=== PATIENT | female | born 2000 | race African-American/Black ===

== ENCOUNTER 2020-10-30 20:56 | Emergency (ER) | payer MEDICAID ==
[~2020-10-30] VITALS: Ht 162.6 cm; Wt 45.0 kg
[2020-10-30 20:58] VITALS: BP 110/70
[2020-10-30 23:00] LABS: CLARITY URINE CLOUDY (CLEAR); COLOR URINE YELLOW (YELLOW); KETONES URINE 4+ (NEGATIVE); LEUKOCYTE ESTERASE URINE TRACE (NEGATIVE); NITRITE URINE NEGATIVE (NEGATIVE); OCCULT BLOOD URINE NEGATIVE (NEGATIVE); PH URINE 7.5 (4.5-8.0); PROTEIN URINE 1+ (NEGATIVE); SPECIFIC GRAVITY URINE 1.028 (1.005-1.030); UROBILINOGEN URINE 0.2 E.U./dL (0.2-1.0)
== END 2020-10-30 23:59 | disposition left against medical advice (07) ==
LOC: ER 20:56
DX: Z53.21 Procedure and treatment not carried out due to patient leaving prior to being seen by health care provider (principal); R10.30 Lower abdominal pain, unspecified; R11.2 Nausea with vomiting, unspecified
CPT/HCPCS: 81003; 81025

== ENCOUNTER 2024-12-13 12:17 | Emergency (ER) | payer MEDICAID ==
[~2024-12-13] VITALS: Ht 162.6 cm; Wt 61.0 kg
[2024-12-13] MEDS ORDERED: IBUP-2028 MT (13:31)
[2024-12-13] MEDS ORDERED: AMOX1TAB16 MT (13:31)
[2024-12-13] MEDS ORDERED: HYDR-4001 MT (13:31)
[2024-12-13] MEDS: HYDROCODONE/ACETAMINOPHEN 5/325MG TABLET PO ONE (13:39)
[2024-12-13] MEDS: AMOXICILLIN/POTASSIUM CLAVULANATE 875/125MG TAB PO ONE (13:39)
[2024-12-13 13:44] VITALS: BP 136/76; PULSE 97; RESP 14; TEMP 35.8; O2SAT 99
== END 2024-12-13 13:46 | disposition home or self-care (01) ==
LOC: ER 12:17
DX: K02.9 Dental caries, unspecified (principal)
CPT/HCPCS: 99283

== ENCOUNTER 2025-10-01 17:41 | Emergency (ER) | payer MEDICAID ==
[~2025-10-01] VITALS: Ht 162.6 cm; Wt 60.0 kg
[~2025-10-01 17:41] MED LIST: AMOX1TAB16 MT; HYDR-4001 MT; IBUP-2028 MT
[2025-10-01 18:09] VITALS: O2SAT 99
[2025-10-01 20:12] LABS: CLARITY URINE CLOUDY (CLEAR); COLOR URINE YELLOW (YELLOW); GLUCOSE URINE NEGATIVE (NEGATIVE); KETONES URINE 4+ (NEGATIVE); LEUKOCYTE ESTERASE URINE 1+ (NEGATIVE); NITRITE URINE NEGATIVE (NEGATIVE); OCCULT BLOOD URINE 1+ (NEGATIVE); PH URINE 6.0 (4.5-8.0); PROTEIN URINE 2+ (NEGATIVE); SPECIFIC GRAVITY URINE 1.028 (1.005-1.030); UROBILINOGEN URINE 0.2 E.U./dL (0.2-1.0)
[2025-10-01 20:24] LABS: HEMATOCRIT. 42.7 % (36.0-48.0); HEMOGLOBIN. 14.0 g/dL (12.0-16.0); MEAN PLATELET VOLUME 9.5 fl (7.4-10.4); PLATELET 268 x1000/uL (130-400); RED BLOOD CELL COUNT 4.71 mill/uL (4.2-5.4); RED CELL DISTRIBUTION WIDTH 14.5 % (11.6-14.6)
[2025-10-01] MEDS: SODIUM CHLORIDE 0.9% 1,000 ML IV ONE (20:25)
[2025-10-01] MEDS: ONDANSETRON HCL 4MG/2ML INJ IV ONE (20:26)
[2025-10-01] MEDS: KETOROLAC 15MG/ML VIAL IV ONE (20:27)
[2025-10-01 20:33] LABS: BACTERIA URINE 1+; RBC URINE 0-2 /hpf (0-2); SQUAMOUS EPITHELIAL CELL URINE 1+ /lpf (RARE/1+)
[2025-10-01] MEDS: FAMOTIDINE 20MG/2ML VIAL IV ONE (20:33)
[2025-10-01 20:37] LABS: CREATININE 0.8 mg/dL (0.6-1.0); UREA NITROGEN BLOOD 11 mg/dL (9-23)
[2025-10-01 20:39] LABS: ASPARTATE AMINOTRANSFERASE 18 IU/L (<34); BILIRUBIN DIRECT 0.2 mg/dL (<=3.0)
[2025-10-01 20:40] LABS: BILIRUBIN TOTAL 0.7 mg/dL (0.1-1.0); PROTEIN TOTAL 8.0 g/dL (6.0-8.3)
[2025-10-01 21:21] VITALS: BP 114/68; PULSE 69; RESP 20; TEMP 36.7; O2SAT 100
[2025-10-01 21:23] LABS: LYMPHOCYTES % MANUAL 3.0 % (20.0-60.0); MONOCYTES % MANUAL 2.0 % (2.0-8.0); NEUTROPHILS % MANUAL 95.0 % (45.0-75.0); PLATELET ESTIMATE NORMAL
[2025-10-01] MEDS ORDERED: FAMO20TA8 MT (21:36)
[2025-10-01] MEDS ORDERED: ONDA4TAB50 PO (21:36)
[2025-10-01] MEDS: CEFTRIAXONE 1GM/50ML 50 ML IV NR (21:36)
[2025-10-01] MEDS ORDERED: SULF1TAB48 MT (21:36)
[2025-10-01] MEDS ORDERED: ACET-2708 PO (21:36)
== END 2025-10-01 22:05 | disposition home or self-care (01) ==
LOC: ER 17:41
DX: K29.00 Acute gastritis without bleeding (principal); R10.84 Generalized abdominal pain; N39.0 Urinary tract infection, site not specified; I10 Essential (primary) hypertension; Z79.899 Other long term (current) drug therapy
CPT/HCPCS: 80076; 80048; 81003; 81025; 83690; 85025; 36415; 96361; 96365; 96375; 99284; J0696; J1308; J1885; J2405; J7030; Z7610